=== PATIENT | female | born 1950 | race Caucasian/White ===

== ENCOUNTER 2017-10-12 10:31 | Day surgery (SDC) | payer MEDICARE ==
[2017-10-09 13:16] VITALS: BMI 28.6
[~2017-10-12 10:31] MED LIST: LACTATED RINGERS 1,000 ML IV SCH
--- NOTE | 2017-10-12 11:44 | P.GSHP ---
History of Present Illness H&P Date: 10/12/17 CHIEF COMPLAINT: Colon screen HISTORY OF PRESENT ILLNESS: The patient is a 67-year-old female who presents for colon screen. Lower endoscopy was offered for further evaluation and management. PAST MEDICAL HISTORY: Please see list. PAST SURGICAL HISTORY: Please see list. MEDICATIONS: Please see list. ALLERGIES: Please see list. SOCIAL HISTORY: No illicit drug use FAMILY HISTORY: No reports of Crohn disease or ulcerative colitis. REVIEW OF ORGAN SYSTEMS: CONSTITUTIONAL: No reports of fevers or chills. PHYSICAL EXAM: VITAL SIGNS: Stable GENERAL: Well-developed pleasant in no acute distress. HEENT: No scleral icterus. Extraocular movements grossly intact. Moist buccal mucosa. NECK: Supple without lymphadenopathy. CHEST: Unlabored respirations. Equal bilateral excursions. CARDIOVASCULAR: Regular rate and rhythm. Distal 2+ pulses. ABDOMEN: Soft, nontender, nondistended. MUSCULOSKELETAL: No clubbing, cyanosis, or edema. ASSESSMENT: 1. Colon screen. PLAN: 1. Recommend proceeding with a lower endoscopy Past Medical History Past Medical History: Atrial Fibrillation, GERD/Reflux, Hyperlipidemia, Hypertension, Osteoarthritis (OA), Renal Disease, Sleep Apnea/CPAP/BIPAP, Thyroid Disorder Additional Past Medical History / Comment(s): hx migraines, hashimotos, " chronic kidney failure". currently wearing a heart monitor History of Any Multi-Drug Resistant Organisms: None Reported Past Surgical History: Adenoidectomy, Breast Surgery, Orthopedic Surgery, Tonsillectomy Additional Past Surgical History / Comment(s): CERVICAL biopsy, wale bunionectomy , left breast biopsy, rt stapidectomy with titanium implant, Past Anesthesia/Blood Transfusion Reactions: No Reported Reaction Smoking Status: Never smoker - Past Family History Mother Family Medical History: No Reported History Medications and Allergies Home Medications Medication Instructions Recorded Confirmed Type Aspirin [Adult Low Dose Aspirin EC] 81 mg PO BID 01/05/16 10/09/17 History Levothyroxine Sodium [Tirosint] 125 mcg PO MOTUWETHFRSA 01/05/16 10/12/17 History Losartan [Cozaar] 50 mg PO DAILY 01/05/16 10/12/17 History Omeprazole 20 mg PO Q48H 01/05/16 10/12/17 History Flecainide [Tambocor] 50 mg PO Q12HR 10/09/17 10/12/17 History Levothyroxine Sodium 62.5 mcg PO BARNHART 10/09/17 10/12/17 History Loratadine [Claritin] 10 mg PO MOTUWETHFR 10/09/17 10/12/17 History Metoprolol Tartrate [Lopressor] 50 mg PO BID 10/09/17 10/12/17 History Spironolactone [Aldactone] 25 mg PO DAILY 10/09/17 10/12/17 History Allergies Allergy/AdvReac Type Severity Reaction Status Date / Time BEATRIZ Inhibitors Allergy Cough Verified 10/09/17 13:04 Sulfa (Sulfonamide Allergy Rash/Hives Verified 10/09/17 13:04 Antibiotics)
[2017-10-12 11:48] VITALS: TEMP 97
[2017-10-12] MEDS ORDERED: LIDOCAINE 1% 20 ML VIAL (10MG/ML) FOR IV START INTRADERMA ONE (11:52)
[2017-10-12] MEDS ORDERED: PROPOFOL 10 MG/ML 20 ML VIAL IV ONE (13:14)
[2017-10-12] MEDS ORDERED: LIDOCAINE 1% INJ 10MG/ML (20 ML MDV) ONE (13:14)
--- NOTE | 2017-10-12 13:41 | P.PCN ---
Date of Procedure: 10/12/17 Description of Procedure: PREOPERATIVE DIAGNOSIS: Colonoscopy screening, first Cologuard, positive. POSTOPERATIVE DIAGNOSIS: Colonoscopy screening, first Cologuard, positive. Sigmoid colon polyp. Descending colon polyp. External hemorrhoids, grade 2. Severe sigmoid diverticulosis. OPERATION: Colonoscopy to the ileocecal valve and appendiceal orifice. Colonoscopy with hot snare polypectomy. Colonoscopy with cold biopsy forcep SURGEON: Cristine Blanco MD. ANESTHESIA: MAC. INDICATIONS: The patient is a 67-year-old female who presents for her first colonoscopy screening. She reports positive cologuard. Benefits and risks were described and informed consent was obtained. DESCRIPTION OF PROCEDURE: The patient had undergone Gatorade, MiraLAX and Dulcolax prep. She had been brought into the operating room and laid in the left lateral decubitus position. After adequate intravenous sedation, the rectum was examined with 2% lidocaine jelly. External hemorrhoids were encountered. The rectal tone was within normal limits. No lesions were palpated in the rectal vault. An Olympus colonoscope was advanced until the ileocecal valve and appendiceal orifice were clearly viewed. The prep was fair with visualization of the mucosal folds. The scope was removed with visualization of each mucosal fold. Severe scattered diverticulosis was encountered. Multiple colonic polyps were found and cold forcep biopsy or snare polypectomy. No evidence of focal colitis was found. Retroflexion of the scope demonstrated no internal hemorrhoids without active bleeding or inflammation. The colon was desufflated. The patient had tolerated the procedure well. Withdrawal time was over 6 minutes. FINDINGS: No internal hemorrhoids. External hemorrhoids, grade 1. No arteriovenous malformations. Severe sigmoid diverticulosis Removal of 2 polyps - Snare polypectomy 30 cm from the anal verge, 5 mm tubulovillous adenoma polyp. - Cold forceps biopsy at 20 cm from the anal verge, 4 mm polyp. No focal colitis. RECOMMENDATIONS: Given severity of tubular adenomas, recommend repeat colonoscopy 3 years, 2020 Plan - Discharge Summary New Discharge Prescriptions: No Action Losartan [Cozaar] 50 mg PO DAILY Omeprazole 20 mg PO Q48H Levothyroxine Sodium [Tirosint] 125 mcg PO MOTUWETHFRSA Aspirin [Adult Low Dose Aspirin EC] 81 mg PO BID Loratadine [Claritin] 10 mg PO MOTUWETHFR Flecainide [Tambocor] 50 mg PO Q12HR Levothyroxine Sodium 62.5 mcg PO BARNHART Spironolactone [Aldactone] 25 mg PO DAILY Metoprolol Tartrate [Lopressor] 50 mg PO BID Discharge Medication List Aspirin [Adult Low Dose Aspirin EC] 81 mg PO BID 01/05/16 [History] Levothyroxine Sodium [Tirosint] 125 mcg PO MOTUWETHFRSA 01/05/16 [History] Losartan [Cozaar] 50 mg PO DAILY 01/05/16 [History] Omeprazole 20 mg PO Q48H 01/05/16 [History] Flecainide [Tambocor] 50 mg PO Q12HR 10/09/17 [History] Levothyroxine Sodium 62.5 mcg PO BARNHART 10/09/17 [History] Loratadine [Claritin] 10 mg PO MOTUWETHFR 10/09/17 [History] Metoprolol Tartrate [Lopressor] 50 mg PO BID 10/09/17 [History] Spironolactone [Aldactone] 25 mg PO DAILY 10/09/17 [History]
[2017-10-12 13:44] VITALS: RESP 18
[2017-10-12 14:24] VITALS: BP 118/68; PULSE 58
--- NOTE | 2017-10-16 12:46 | CDI ---
Date: 10/16/17 CDS/Director Instrumentation Name: Tonya Galvez Phone: If any questions, call Anali Erwin [employer] at [phone] Patient Name: Hamida Hartmann Admit Date: 10/12/17 Discharge Date: 10/12/17 ATTENTION: The [facility] Coding Staff appreciate your assistance in clarifying documentation. Please respond to the clarification below the line at the bottom and electronically sign. The [facility] Coding staff will review the response and follow-up if needed. Please note: Queries are made part of the Legal Health Record. If you have any questions, please contact the [employer]ing Roller Polisher. Dear Dr. Blanco, Please provide clarification as to the location of the polyps that were removed. Please clarify if they were removed from Sigmoid, Transverse, etc. part of the colon. Thank you for your kind consideration. Please see diagnosis information as in op note. POSTOPERATIVE DIAGNOSIS: Colonoscopy screening, first Cologuard, positive. Sigmoid colon polyp. Descending colon polyp. External hemorrhoids, grade 2. Severe sigmoid diverticulosis. KM 10/16/17 @ 20:00 [facility]
== END 2017-10-12 14:30 | disposition home or self-care (01) ==
LOC: ORWHC2ENDO 10:31
PROVIDERS: ATTEND Surgery Plastic and Reconstructive Surgery
DX: K63.5 Polyp of colon (principal); K64.1 Second degree hemorrhoids; K57.30 Diverticulosis of large intestine without perforation or abscess without bleeding; K21.9 Gastro-esophageal reflux disease without esophagitis; I48.91 Unspecified atrial fibrillation; E78.5 Hyperlipidemia, unspecified; I12.9 Hypertensive chronic kidney disease with stage 1 through stage 4 chronic kidney disease, or unspecified chronic kidney disease; N18.9 Chronic kidney disease, unspecified; E06.3 Autoimmune thyroiditis; M19.90 Unspecified osteoarthritis, unspecified site; G47.33 Obstructive sleep apnea (adult) (pediatric); Z99.89 Dependence on other enabling machines and devices; E07.9 Disorder of thyroid, unspecified; Z79.82 Long term (current) use of aspirin; Z79.890 Hormone replacement therapy; Z79.899 Other long term (current) drug therapy; Z88.2 Allergy status to sulfonamides; Z88.8 Allergy status to other drugs, medicaments and biological substances
CPT/HCPCS: 88305; 45380; 45385; J2001; J2704

== ENCOUNTER → 2018-12-09 | Outpatient (CLI) | payer MEDICARE | END | disposition home or self-care (01) | LOC: LABWHC1 10:36 | PROVIDERS: ATTEND Physician Assistant | DX: E55.9 Vitamin D deficiency, unspecified (principal) | CPT/HCPCS: 36415; 82306 ==

== ENCOUNTER 2021-09-14 07:25 | Day surgery (SDC) | payer MEDICARE ==
[2021-09-12 14:37] VITALS: BMI 29.0
--- NOTE | 2021-09-14 06:24 | P.GSHP ---
History of Present Illness H&P Date: 09/14/21 CHIEF COMPLAINT: Colon screen HISTORY OF PRESENT ILLNESS: The patient is a 70-year-old female who presents for colon screen. Lower endoscopy was offered for further evaluation and management. PAST MEDICAL HISTORY: Please see list. PAST SURGICAL HISTORY: Please see list. MEDICATIONS: Please see list. ALLERGIES: Please see list. SOCIAL HISTORY: No illicit drug use FAMILY HISTORY: No reports of Crohn disease or ulcerative colitis. REVIEW OF ORGAN SYSTEMS: CONSTITUTIONAL: No reports of fevers or chills. PHYSICAL EXAM: VITAL SIGNS: Stable GENERAL: Well-developed pleasant in no acute distress. HEENT: No scleral icterus. Extraocular movements grossly intact. Moist buccal mucosa. NECK: Supple without lymphadenopathy. CHEST: Unlabored respirations. Equal bilateral excursions. CARDIOVASCULAR: Regular rate and rhythm. Distal 2+ pulses. ABDOMEN: Soft, nontender, nondistended. MUSCULOSKELETAL: No clubbing, cyanosis, or edema. ASSESSMENT: 1. Colon screen. PLAN: 1. Recommend proceeding with a lower endoscopy Past Medical History Past Medical History: Atrial Fibrillation, GERD/Reflux, Hyperlipidemia, Hypertension, Osteoarthritis (OA), Renal Disease, Sleep Apnea/CPAP/BIPAP, Thyroid Disorder Additional Past Medical History / Comment(s): hx migraines, hashimotos, chronic kidney failure History of Any Multi-Drug Resistant Organisms: None Reported Past Surgical History: Adenoidectomy, Breast Surgery, Ear Surgery, Orthopedic Surgery, Tonsillectomy Additional Past Surgical History / Comment(s): wale bunionectomy, left breast biopsy, rt stapidectomy with titanium implant Past Anesthesia/Blood Transfusion Reactions: No Reported Reaction Past Psychological History: No Psychological Hx Reported Smoking Status: Never smoker Past Alcohol Use History: Rare Past Drug Use History: None Reported - Past Family History Mother Family Medical History: No Reported History Medications and Allergies Home Medications Medication Instructions Recorded Confirmed Type Aspirin [Adult Low Dose Aspirin EC] 81 mg PO BID 01/05/16 09/12/21 History Levothyroxine Sodium [Tirosint] 0.5 tab PO DAILY 01/05/16 09/12/21 History Omeprazole 20 mg PO Q48H 01/05/16 09/12/21 History Flecainide [Tambocor] 50 mg PO BID 10/09/17 09/12/21 History Loratadine [Claritin] 10 mg PO MOTUWETHFR 10/09/17 09/12/21 History Metoprolol Tartrate [Lopressor] 50 mg PO QAM 10/09/17 09/12/21 History Spironolactone [Aldactone] 25 mg PO DAILY 10/09/17 09/12/21 History Ezetimibe [Zetia] 10 mg PO DAILY 09/12/21 09/12/21 History Metoprolol Tartrate [Lopressor] 25 mg PO HS 09/12/21 09/12/21 History Allergies Allergy/AdvReac Type Severity Reaction Status Date / Time BEATRIZ Inhibitors Allergy Cough Verified 09/12/21 14:28 Sulfa (Sulfonamide Allergy Rash/Hives Verified 09/12/21 14:28 Antibiotics)
[~2021-09-14 07:25] MED LIST changes: +LIDOCAINE 1% (10MG/ML) FOR IV START INTRADERMA PRN
[2021-09-14 08:17] VITALS: TEMP 97.2
[2021-09-14] MEDS ORDERED: MIDAZOLAM 2 MG/2 ML VIAL ONE (08:41)
[2021-09-14] MEDS ORDERED: PROPOFOL 10 MG/ML 20 ML VIAL IV ONE (08:41)
[2021-09-14] MEDS ORDERED: fentaNYL (PF) 50 MCG/ML 2 ML AMP ONE (08:41)
--- NOTE | 2021-09-14 09:17 | P.PCN ---
Date of Procedure: 09/14/21 Description of Procedure: PREOPERATIVE DIAGNOSIS: History of colon polyps Colonoscopy screening. POSTOPERATIVE DIAGNOSIS: History of colon polyps Colonoscopy screening. Severe sigmoid diverticulosis OPERATION: Colonoscopy to the cecum, ileocecal valve and appendiceal orifice. SURGEON: Cristine Blanco MD. ANESTHESIA: MAC. INDICATIONS: The patient is a 70-year-old female who presents for colonoscopy screening. She has history of colon polyps. Last colonoscopy less than 5 years ago. Benefits and risks were described and informed consent was obtained. DESCRIPTION OF PROCEDURE: The patient had undergone Sutab prep. The patient had been brought into the operating room and laid in the left lateral decubitus position. After adequate intravenous sedation, the rectum was examined with 2% lidocaine jelly. No external hemorrhoids were encountered. The rectal tone was within normal limits. No lesions were palpated in the rectal vault. An Olympus colonoscope was advanced until the cecum, ileocecal valve and appendiceal orifice were clearly viewed. The prep was excellent. Severe sigmoid diverticulosis was encountered. No colonic polyps were found. No evidence of focal colitis was found. Retroflexion of the scope demonstrated grade 2 internal hemorrhoids without active bleeding or inflammation. The colon was desufflated. The patient had tolerated the procedure well. Withdrawal time was over 6 minutes. FINDINGS: Aronchick preparation quality scale 1 (1-5) Internal hemorrhoids, grade 2 No external prolapsed hemorrhoids. No arteriovenous malformations. No adenomatous polyps. No focal colitis. Severe sigmoid diverticulosis RECOMMENDATIONS: Repeat colonoscopy in 5 years, 2026 Plan - Discharge Summary Discharge Rx Participant: No New Discharge Prescriptions: Continue Omeprazole 20 mg PO Q48H Levothyroxine Sodium [Tirosint] 0.5 tab PO DAILY Aspirin [Adult Low Dose Aspirin EC] 81 mg PO BID Loratadine [Claritin] 10 mg PO MOTUWETHFR Flecainide [Tambocor] 50 mg PO BID Spironolactone [Aldactone] 25 mg PO DAILY Metoprolol Tartrate [Lopressor] 50 mg PO QAM Ezetimibe [Zetia] 10 mg PO DAILY Metoprolol Tartrate [Lopressor] 25 mg PO HS Discharge Medication List Aspirin [Adult Low Dose Aspirin EC] 81 mg PO BID 01/05/16 [History] Levothyroxine Sodium [Tirosint] 0.5 tab PO DAILY 01/05/16 [History] Omeprazole 20 mg PO Q48H 01/05/16 [History] Flecainide [Tambocor] 50 mg PO BID 10/09/17 [History] Loratadine [Claritin] 10 mg PO MOTUWETHFR 10/09/17 [History] Metoprolol Tartrate [Lopressor] 50 mg PO QAM 10/09/17 [History] Spironolactone [Aldactone] 25 mg PO DAILY 10/09/17 [History] Ezetimibe [Zetia] 10 mg PO DAILY 09/12/21 [History] Metoprolol Tartrate [Lopressor] 25 mg PO HS 09/12/21 [History] Follow up Appointment(s)/Referral(s): Cristine Blanco MD [STAFF PHYSICIAN] - As Needed Patient Instructions/Handouts: Diverticulosis Diet (GEN), Diverticulosis (DC) Activity/Diet/Wound Care/Special Instructions: Repeat colonoscopy in 5 years, 2026 or cologuard Discharge Disposition: HOME SELF-CARE
[2021-09-14 09:29] VITALS: BP 110/70; PULSE 64; RESP 16
== END 2021-09-14 10:15 | disposition home or self-care (01) ==
LOC: ORWHC2ENDO 07:25
PROVIDERS: ATTEND Surgery Plastic and Reconstructive Surgery
DX: Z12.11 Encounter for screening for malignant neoplasm of colon (principal); Z86.010 Personal history of colon polyps; K57.30 Diverticulosis of large intestine without perforation or abscess without bleeding; E78.5 Hyperlipidemia, unspecified; M19.90 Unspecified osteoarthritis, unspecified site; I12.9 Hypertensive chronic kidney disease with stage 1 through stage 4 chronic kidney disease, or unspecified chronic kidney disease; N18.9 Chronic kidney disease, unspecified; E07.9 Disorder of thyroid, unspecified; G47.33 Obstructive sleep apnea (adult) (pediatric); I48.91 Unspecified atrial fibrillation; K21.9 Gastro-esophageal reflux disease without esophagitis; G43.909 Migraine, unspecified, not intractable, without status migrainosus; E06.3 Autoimmune thyroiditis; Z98.890 Other specified postprocedural states; Z79.82 Long term (current) use of aspirin; Z79.890 Hormone replacement therapy; Z79.899 Other long term (current) drug therapy; Z88.2 Allergy status to sulfonamides; Z88.8 Allergy status to other drugs, medicaments and biological substances
CPT/HCPCS: J2250; J3010; J2704; G0105; 45378

== ENCOUNTER → 2022-10-24 | Outpatient (CLI) | payer MEDICARE ==
--- NOTE | 2022-10-24 20:24 | US ---
EXAMINATION TYPE: US kidneys/renal and bladder DATE OF EXAM: 10/24/2022 COMPARISON: NONE CLINICAL INDICATION: Female, 72 years old with history of [id number] CHRONIC KID DISEASE; EXAM MEASUREMENTS: Right Kidney: 11.6 x 4.9 x 4.8 cm Left Kidney: 10.8 x 4.2 x 4.5 cm Bilateral renal cortical thinning. Right Kidney: No hydronephrosis or masses seen Left Kidney: No hydronephrosis or masses seen Bladder: wnl Bilateral Jets seen: Yes Incidental echogenic hepatic parenchyma. IMPRESSION: 1. Cortical thinning suggesting chronic medical renal disease. 2. No hydronephrosis. 3. There appears to be some incidental underlying hepatic steatosis.
--- NOTE | 2022-10-24 22:18 | BD ---
EXAMINATION TYPE: Axial Bone Density DATE OF EXAM: 10/24/2022 CLINICAL HISTORY: 72 years old Female. ICD-10 CODE: [id number] OSTEOPENIA OF R HIP Height: 64.5 Weight: 183.1 FRAX RISK QUESTIONS: Alcohol (3 or more units per day): no Family History (Parent hip fracture): no Glucocorticoids (More than 3mos): no History of Fracture in Adulthood: Foot, Wrist, Secondary Osteoporosis: 1. Type 1 Diabetes: no 2. Hyperthyroidism: no 3. Menopause before 45: no 4. Malnutrition: no 5. Chronic liver disease: no Rheumatoid Arthritis: no Current Tobacco Use: no RISK FACTORS HISTORY OF: Hip Fracture (Right/Left): no Spine Fracture: no History of Wrist Fracture: yes, lt wrist When: Age 69 Surgery to Spine/Hip(right/left)/Wrist (right/left): no Family History of Osteoporosis: no Active: yes Diet low in dairy products/other sources of calcium: no Postmenopausal woman: yes Take estrogen and/or progesterone medications: no Lost more than 2 inches in height since high school: yes Frequent falls: yes Poor Health: no Hyperparathyroidism: no Adrenal Insufficiency: no MEDICATIONS: Prednisone or other steroids: no Thyroid Medications: yes Which medication: Levothyroxin How Long: Past 30 years Osteoporosis Medications: no Additional Medications: Bp Meds x 3, Depression Meds, Cholesterol Med, Biotin, Multi Vit., Calcium, V it D Additional History: EXAM MEASUREMENTS: Bone mineral densitometry was performed using the [employer] System. Bone mineral density as measured about the Lumbar spine is: ----- L1-L4(G/cm2): 1.381 T Score Values are as follows: ----- L1: 0.0 ----- L2: -0.1 ----- L3: 2.0 ----- L4: 4.2 ----- L1-L4: 1.7 Z Score Values are as follows: ----- L1: 1.2 ----- L2: 1.1 ----- L3: 3.1 ----- L4: 5.3 ----- L1-L4: 2.8 Bone mineral density has: increased 9.5 % since study of: 03/01/2009 Bone mineral density about the R hip (g/cm2): 1.014 Bone mineral density about the L hip (g/cm2): 0.992 T Score values are as follows: -----R Neck: -1.4 -----L Neck: -1.1 -----R Total: 0.1 -----L Total: -0.1 Z Score values are as follows: -----R Neck: 0.3 -----L Neck: 0.1 -----R Total: 1.3 -----L Total: 1.1 Bone mineral density has: increased 2.5 % since study of: 03/01/2009 FRAX%s: The graph provided illustrates a 15.9% chance for a major osteoporotic fx and a 2.6% chance f or the hips probability for fx in 10 years time. IMPRESSION: Osteopenia (T Score between -2.5 and -1). There is slightly increased risk of fracture and the patient may be considered for treatment. Re-Screen 2-5 years. NOTE: T-SCORE=SD OF THE YOUNG ADULT MEAN.
--- NOTE | 2022-10-25 16:58 | MM ---
Reason for Exam: Screening (asymptomatic). Last mammogram was performed 6 year(s) and 9 month(s) ago. Patient History: Menarche at age 11. First Full-Term at age 23. Postmenopausal. Patient has history of breast feeding. Estrogen for 4 years, 9 months, until age 53. Progesterone for 4 years, 9 months, until age 53. 2003, Benign Excisional Biopsy on the left side. Risk Values: Veronika 5 year model risk: 2.3%. NCI Lifetime model risk: 5.3%. Prior Study Comparison: 12/20/2009 Bilateral Screening Mammogram, [facility]. 05/15/2011 Bilateral Screening Mammogram, [facility] 01/26/2016 Bilateral Screening Mammogram, [facility]. Tissue Density: The breast tissue is heterogeneously dense. This may lower the sensitivity of mammography. Findings: Analyzed By CAD. Pattern appears stable. Chronic nodularities in the upper outer posterior right breast. Benign calcification is present bilaterally. No suspicious groups of microcalcifications, spiculated or lobular masses, architectural distortion or other secondary signs of malignancy are mammographically apparent. Overall Assessment: Benign, BI-RAD 2 Management: Screening Mammogram of both breasts in 1 year. A negative mammogram report should not preclude additional follow up of suspicious palpable abnormalities. Patient should continue monthly self breast exam. A clinical breast exam by your physician is recommended on an annual basis and results should be correlated with mammographic findings. Electronically signed and approved by: Vance Morin D.O. Radiologis
== END | disposition home or self-care (01) ==
LOC: RADUSWWP 14:52
PROVIDERS: ATTEND Internal Medicine
DX: Z12.31 Encounter for screening mammogram for malignant neoplasm of breast (principal); M85.89 Other specified disorders of bone density and structure, multiple sites; N18.31 Chronic kidney disease, stage 3a; Z78.0 Asymptomatic menopausal state
CPT/HCPCS: 76770; 77063; 77067; 77080

== ENCOUNTER → 2023-09-21 | Outpatient (CLI) | payer MEDICARE ==
--- NOTE | 2023-09-21 12:41 | XR ---
EXAMINATION TYPE: XR lumbar spine with bend/flex DATE OF EXAM: 09/21/2023 12:25 PM CLINICAL INDICATION:Female, 72 years old with history of M54.50 LUMBAR PAIN; COMPARISON: None TECHNIQUE: XR lumbar spine with bend/flex - Frontal, lateral and coned in L5-S1 lateral views of the spine. FINDINGS: No evidence of any acute osseous pathology. No evidence of loss of vertebral body height i s seen. There is scoliosis alignment of the lumbar vertebral bodies. Mild scattered disc space narrow ing. Multilevel marginal osteophyte formation throughout the visualized spine. There is facet joint a rthropathy throughout the spine. Severe neural foraminal stenosis at L4-L5 and L5-S1. Atherosclerosis of the arterial vasculature. IMPRESSION: 1. No acute fracture. 2. Severe multilevel disc degeneration with neural foraminal stenosis worse at L4-L5 and L5-S1.
== END | disposition home or self-care (01) ==
LOC: RADXRMAIN 11:51
PROVIDERS: ATTEND Internal Medicine
DX: Z00.00 Encounter for general adult medical examination without abnormal findings (principal); M51.37 Other intervertebral disc degeneration, lumbosacral region; M99.73 Connective tissue and disc stenosis of intervertebral foramina of lumbar region
CPT/HCPCS: 72114